=== PATIENT | female | born 1980 | race Caucasian/White ===

== ENCOUNTER 2019-01-14 12:41 | Emergency (ER) | payer MEDICAID, SELFPAY ==
[2019-01-14 12:51] VITALS: BP 136/95; PULSE 78; RESP 18; TEMP 36.9; O2SAT 99; BMI 20.9
[2019-01-14 13:05] VITALS: BP 136/95; PULSE 78; RESP 18; TEMP 36.9; O2SAT 99; BMI 22.6
--- NOTE | 2019-01-14 13:17 | HMH.EDUTC ---
[facility] [place] Disposition Clinical Impression: Inflamed sebaceous cyst Disposition: Home, Self-Care Condition on Discharge: Good Instructions: Epidermal Cyst, DI for Epidermal Cyst Additional Instructions: Follow up tomorrow morning 01-15-19 in the Surgical Clinic with Dr Garcia at 930am here at the Hospital *Start antibiotic(s) immediately and be sure to take as ordered for the FULL length of time although you may be feeling better or start to see improvement in the next 24-48 hours *Monitor closely. Outlined redness so that you can monitor easier. Follow up immediately for new or worsening symptoms including but not limited to redness, swelling, streaking from site fever or chills. *Warm compress 15 minutes 3-4 times day *Monitor Temp. Tylenol every 4 hours as needed and ibuprofen every 6 hours as needed (as long as your primary care doctor has told you that it is ok to take both. For fever, aches, pain. ER if no less that 101 despite Tylenol and ibuprofen Follow up with your family doctor/primary care physician in the next 48-72 hours if no improvement Appointment 01-15-[address] Garcia in the Surgical Clinic here at [facility] Straight to ER if any life threatening symptoms Prescriptions: Ibuprofen [Ibuprofen 600mg Tablet] 600 mg PO Q6HP PRN #20 tab PRN Reason: Moderate Pain Clindamycin HCl [Clindamycin HCl 300mg Cap] 300 mg PO Q6 7 Days #28 cap Referrals: Provider,Referral, [Primary Care Provider] - Forms: Work/School Release Time of Disposition: 13:47 Medical Decision Making - Tadeo Inquiry Pt receiving controlled substance: No Tadeo was queried for this patient: No Vital Signs: 01/14/19 12:51 01/14/19 13:05 Temperature 98.5 F 98.5 F Temperature Source Oral Oral Pulse Rate [Left Radial] 78 78 Respiratory Rate 18 18 Blood Pressure [Right Arm] 136/95 H 136/95 H Blood Pressure Mean [Right Arm] 108 108 Blood Pressure Source [Right Arm] Automatic Cuff Blood Pressure Position [Right Arm] Supine 02 Sat by Pulse Oximetry 99 99 Oxygen Delivery Method Room Air Room Air - Physician Consults Physician Consulted: Oscarran Time: 13:15 Comment/Response: Called office to see if patient could get the next available appointment with surgery for evaluation and possible removal of cyst like lesion on right shoulder that has got larger over the last week Spoke with Alyssa and advised next available appointment at 9:30am on 01/15/[address] Garcia [facility] [place] HPI - General Stated complaint: Knot on back very painfull Time Seen by Provider: 01/14/19 13:17 Mode of Arrival: Ambulatory Source of Information: Patient Limitations: No Limitations Description of Symptoms (Recalled from Triage Doc. by RN): PT C/O BUMP ON RT SHOULDER BLADE HEENT Symptoms (Recalled from RN notes): No Resp Symptoms (Recalled from RN notes): No Skin Symptoms (Recalled from RN notes): Yes MS Symptoms (Recalled from RN notes): No Functional Status (Recalled from RN notes): N/A - History of Present Illness Provider Complaint: Patient states that she has had this small lump on her right shoulder area for about 15-20yrs State that over the last few months it started getting bigger States that about a week ago she hit the area with a door at work and it now it has got larger noticed it was turning red and warm to touch so she came in to have it looked at - Related Data Previous Rx's Medication Instructions Recorded Cyclobenzaprine HCl 5 - 10 mg PO HS PRN #7 tab 12/18/17 [Cyclobenzaprine 10mg Tab] predniSONE [Deltasone 10mg tablet] 10 mg PO BID #10 tab 12/18/17 Clindamycin HCl [Clindamycin HCl 300 mg PO Q6 7 Days #28 cap 01/14/19 300mg Cap] Ibuprofen [Ibuprofen 600mg 600 mg PO Q6HP PRN #20 tab 01/14/19 Tablet] Allergies Allergy/AdvReac Type Severity Reaction Status Date / Time No Known Allergies Allergy Verified 12/18/17 18:25 - Worker's Comp Is this a Worker's Comp case?: No [facility] History - Hepatitis A Scr
--- NOTE | 2019-01-14 13:21 | ED_ITS ---
[facility] [place] Disposition Clinical Impression: Inflamed sebaceous cyst Disposition: Home, Self-Care Condition on Discharge: Good Instructions: Epidermal Cyst, DI for Epidermal Cyst Additional Instructions: Follow up tomorrow morning 01-15-19 in the Surgical Clinic with Dr Gacria at 930am here at the Hospital *Start antibiotic(s) immediately and be sure to take as ordered for the FULL length of time although you may be feeling better or start to see improvement in the next 24-48 hours *Monitor closely. Outlined redness so that you can monitor easier. Follow up immediately for new or worsening symptoms including but not limited to redness, swelling, streaking from site fever or chills. *Warm compress 15 minutes 3-4 times day *Monitor Temp. Tylenol every 4 hours as needed and ibuprofen every 6 hours as needed (as long as your primary care doctor has told you that it is ok to take both. For fever, aches, pain. ER if no less that 101 despite Tylenol and ibuprofen Follow up with your family doctor/primary care physician in the next 48-72 hours if no improvement Appointment 01-15-[address] Garcia in the Surgical Clinic here at [facility] Straight to ER if any life threatening symptoms Prescriptions: Ibuprofen [Ibuprofen 600mg Tablet] 600 mg PO Q6HP PRN #20 tab PRN Reason: Moderate Pain Clindamycin HCl [Clindamycin HCl 300mg Cap] 300 mg PO Q6 7 Days #28 cap Referrals: Provider,Referral, [Primary Care Provider] - Forms: Work/School Release Time of Disposition: 13:47 Medical Decision Making - Tadeo Inquiry Pt receiving controlled substance: No Tadeo was queried for this patient: No Vital Signs: 01/14/19 12:51 01/14/19 13:05 Temperature 98.5 F 98.5 F Temperature Source Oral Oral Pulse Rate [Left Radial] 78 78 Respiratory Rate 18 18 Blood Pressure [Right Arm] 136/95 H 136/95 H Blood Pressure Mean [Right Arm] 108 108 Blood Pressure Source [Right Arm] Automatic Cuff Blood Pressure Position [Right Arm] Supine 02 Sat by Pulse Oximetry 99 99 Oxygen Delivery Method Room Air Room Air - Physician Consults Physician Consulted: Oscarran Time: 13:15 Comment/Response: Called office to see if patient could get the next available appointment with surgery for evaluation and possible removal of cyst like lesion on right shoulder that has got larger over the last week Spoke with Alyssa and advised next available appointment at 9:30am on 01/15/[address] Garcia [facility] [place] HPI - General Stated complaint: Knot on back very painfull Time Seen by Provider: 01/14/19 13:17 Mode of Arrival: Ambulatory Source of Information: Patient Limitations: No Limitations Description of Symptoms (Recalled from Triage Doc. by RN): PT C/O BUMP ON RT SHOULDER BLADE HEENT Symptoms (Recalled from RN notes): No Resp Symptoms (Recalled from RN notes): No Skin Symptoms (Recalled from RN notes): Yes MS Symptoms (Recalled from RN notes): No Functional Status (Recalled from RN notes): N/A - History of Present Illness Provider Complaint: Patient states that she has had this small lump on her right shoulder area for about 15-20yrs State that over the last few months it started getting bigger States that about a week ago she hit the area with a door at work and it now it has got larger noticed it was turning red and warm to touch so she came in to have it looked at - Related Data Previous Rx's Medication Instructions Recorded
[2019-01-14 13:47] VITALS: BP 126/66; PULSE 68; RESP 18; TEMP 36.6; O2SAT 100
== END 2019-01-14 13:50 | disposition home or self-care (01) ==
LOC: ER 12:57 → UTC 12:58
PROVIDERS: Emergency Provider Nurse Practitioner
DX: L72.3 Sebaceous cyst (principal); F17.210 Nicotine dependence, cigarettes, uncomplicated
CPT/HCPCS: 99201